=== PATIENT | male | born 1945 | race Two or more races ===

== ENCOUNTER 2024-12-16 19:04 | Emergency (ER) | payer MEDICARE, SELFPAY ==
[2024-12-16 19:11] VITALS: BP 166/92
[2024-12-16 19:44] LABS: % Basophils 0.3 % (0-2); % Eosinophils 3.4 % (0-6); % Immature Granulocytes 0.1 % (0-0.5); % Lymphocytes 36.8 % (20.5-51.1); % Monocytes 8.7 % (1.7-9.3); % Neutrophils 50.7 % (42.2-75.2); Absolute Eosinophils 0.3 10^3/uL (0-0.7); Absolute Lymphocytes 3.2 10^3/uL (1.2-3.4); Absolute Monocytes 0.8 10^3/uL (0.1-0.6); Absolute Neutrophils 4.4 10^3/uL (1.4-6.5); Hematocrit 46.9 % (39.0-52.0); Hemoglobin 16.2 g/dL (13.0-18.0); Mean Corp Hgb Conc. 34.5 g/dL (33.0-37.0); Mean Corpuscular Hgb 31.2 pg (27.0-31.0); Mean Corpuscular Volume 90.4 fL (80.0-94.0); Mean Platelet Volume 10.8 fL (7.4-10.4); Nucleated Red Blood Cells % 0 % (-); Platelet Count 173 10^3/uL (130-400); Red Blood Cell Count 5.19 10^6/uL (4.70-6.10); Red Cell Dist. Width 14.6 % (11.5-14.5); White Blood Cell Count 8.6 10^3/uL (4.8-10.8)
[2024-12-16 19:58] LABS: ALT (SGPT) 11 U/L (0-50); AST (SGOT) 19 U/L (17-59); Albumin 3.9 g/dl (3.5-5.0); Alkaline Phosphatase 61 U/L (38-126); Blood Urea Nitrogen 15 mg/dl (9-20); Calcium 9.7 mg/dl (8.4-10.2); Carbon Dioxide 27 mmol/L (22-30); Chloride 105 mmol/L (98-107); Glucose 114 mg/dl (70-99); Potassium 4.4 mmol/L (3.5-5.1); Sodium 139 mmol/L (135-145); Total Bilirubin 0.5 mg/dl (0.2-1.3); Total Protein 6.7 g/dl (6.3-8.2); eGFR > 60.00
[2024-12-16 20:11] LABS: Troponin I < 0.012 ng/ml
[2024-12-16 21:41] VITALS: BP 162/86
[2024-12-16 22:21] VITALS: BP 171/90
--- NOTE | 2024-12-16 22:50 | ED.GENMED ---
History of Present Illness
General
Chief Complaint: Chest Pain
Source: patient
Exam Limitations: none
Time Seen by Provider: 12/16/24 22:31
History of Present Illness
History of Present Illness:
79-year-old male presents complaining of chest pain onset prior to arrival. He states he was cleaning his garage when he developed left-sided then right-sided chest pain. He was not short of breath. It actually helped if he took deep breaths. No
back pain or arm pain. No recent travel or surgery. No leg swelling or calf pain. He notes mild abdominal pain as well. No nausea or vomiting. No known injury. No other at this time
Phy Exam
Physical Exam
Physical Exam:
General: Well-appearing male no acute respiratory distress
HEENT: Normocephalic atraumatic
Heart: Regular rate and rhythm no murmurs
Lungs: Clear no wheeze
Abdomen is soft tender in the epigastric region no guarding or rebound. Nondistended no costovertebral angle tenderness
Extremities: No cyanosis or edema
Skin: Warm no rash
Scores
Heart Score for Chest Pain Patients
STEMI patient?: No
History: Slightly or Non-Suspicious
ECG: Normal
Age: >/= 65 years
Risk Factors: 1 or 2 Risk Factors
Troponin: </= Normal Limit
Heart Score for Chest Pain Patients: 3
Heart Score Risk: 2.5% MACE over next 6 weeks
Course
Orders/Labs/Results
Orders:
Orders
12/16/24
ECG [Electrocardiogram (*1)] Urgent
Reason for Study: Chest Pain
12/16/24 19:06
Electrocardiogram (*1) Urgent
Reason for Study: Chest Pain
EKG- Treatment ONCE
12/16/24 19:23
CMP [Comprehensive Metabolic Panel] Urgent
Complete Blood Count/With Diff Urgent
Lipase Urgent
Troponin I Urgent
12/16/24 22:11
EKG- Treatment ONCE
12/16/24 22:46
CR Chest - 2 Views Urgent
Comment:
Reason For Exam: chest pain
12/16/24 22:48
Add On- LAB Urgent
Tests Added?: lipase
12/16/24 22:54
Troponin I Urgent
Abnormal Lab Results
12/16/24
19:23
MCH 31.2 H pg
(27.0-31.0)
RDW 14.6 H %
(11.5-14.5)
MPV 10.8 H fL
(7.4-10.4)
Absolute Monos (auto) 0.8 H 10^3/uL
(0.1-0.6)
Glucose 114 H mg/dl
(70-99)
12/16/24 19:23
12/16/24 19:23
Vital Signs
Initial and Last Documented VS:
Initial Vital Signs
Temp Pulse Resp BP Pulse Ox
98.2 F 66 16 166/92 97
12/16/24 19:11 12/16/24 19:11 12/16/24 19:11 12/16/24 19:11 12/16/24 19:11
Last Documented Vital Signs
Temp Pulse Resp BP Pulse Ox
98.2 F 57 15 171/90 95
12/16/24 19:11 12/16/24 23:10 12/16/24 23:10 12/16/24 22:21 12/16/24 23:10
MDM/Problems Addressed
Differential Diagnosis Includes:
Chest pain. differential could include ACS, pneumothorax, no risk factors for PE. Consider gastritis/GERD as well
Initial EKG shows sinus rhythm without ischemic changes. Troponin is undetectable. Labs reviewed without any significant finding. Chest x-ray pending repeat troponin pending and if negative suspect patient could be discharged. Consider gastritis
or GERD if this is the case.
*Critical Care Note
Total Time (30-74mins, 75-104mins- exclusive of procedures): Not Applicable
Update Note
Update Note:
Repeat troponin normal and undetectable. The x-ray is clear. Atypical chest discomfort. Consider reflux or GERD but will follow-up with cardiology for chest pain hotline.
ED Attending Note
-
Portions of this chart may have been created with voice recognition software.� Occasional wrong word or��sound alike� substitutions may have occurred due to the inherent limitations of voice recognition software.
Discharge Plan
Departure
Patient Disposition: Home (Routine Discharge)
Date of Disposition: 12/16/24
Time of Disposition: 23:43
Patient with high blood pressure during this ER visit?: No
Discharge Problem:
Chest pain
Instructions: Acid Reflux and GERD in Adults (DC), Chest Pain CBC Follow Up
Referrals:
Pamela Heller MD [Family Provider] -
Activity Restrictions/Additional Instructions:
Please return here for worsening symptoms. Follow-up with cardiology. Consider antacids like Prilosec OTC for reflux.
Interventions
Interventions:
*Risk Screen - Suicide Last Done: 12/16/24 19:11
*General Assessment Last Done: 12/16/24 19:11
*Neglect/Abuse Screening Last Done: 12/16/24 19:11
*ED- Fall Risk Assessment Last Done: 12/16/24 19:11
*ED COVID-19 Vaccine History Last Done: 12/16/24 19:11
ED- Cardiac Assessment Last Done: 12/16/24 22:30
Discharge Date and Time
Print Language: ESTONIAN
[2024-12-16 23:10] VITALS: BP 176/94
[2024-12-16 23:19] LABS: Lipase 135 U/L (23-300)
[2024-12-16 23:26] LABS: Troponin I < 0.012 ng/ml
[2024-12-16 23:47] VITALS: BP 167/83
== END 2024-12-16 23:51 | disposition home or self-care (01) ==
LOC: EMR 19:04
PROVIDERS: Emergency Medicine; Student in an Organized Health Care Education/Training Program; EMERGENCY PHYSICIAN Emergency Medicine; FAMILY PHYSICIAN Family Medicine
DX: R07.89 Other chest pain (principal); R10.9 Unspecified abdominal pain
CPT/HCPCS: 99285; 71046; 80053; 83690; 84484; 85025; 93005

== ENCOUNTER → 2024-12-25 08:17 | Outpatient (REF) | payer MEDICARE, SELFPAY | LOC: RCS 08:17 | PROVIDERS: ATTENDING PHYSICIAN Internal Medicine Cardiovascular Disease; FAMILY PHYSICIAN Family Medicine; REFERRING PHYSICIAN Internal Medicine | DX: E78.01 Familial hypercholesterolemia (principal) | CPT/HCPCS: 93017; 93350 ==

== ENCOUNTER 2024-12-25 11:02 | Inpatient (IN) | payer MEDICARE, SELFPAY ==
[2024-12-25] VITALS (16 sets, daily range): BP systolic 146–200; BP diastolic 75–112; BMI 28.2
--- NOTE | 2024-12-25 10:03 | HPS.HSE ---
Addendum entered and electronically signed by Magdalena Stephens MD 12/25/24 10:13:
Patient now with 2/10 cp in ED, ecg no STEMI, starting nitro gtt for ACS. Starting heparin gtt.
Original Note:
Family Physician
-
Family Physician: Pamela Heller
Chief Complaint
-
abnormal stress
History of Present Illness
79-year-old gent with past medical history of familial hypercholesterolemia, hypertriglyceridemia, statin and Zetia intolerance, carotid atherosclerosis, impaired fasting glucose, and hypertension who presented to cardiac services for stress test
today. He had recently been seen in the emergency room for chest pain that began while working in his garage and lifting heavy boxes. He was evaluated with 2 negative troponins and sent home. On stress testing today. He had a high risk stress
echo test result:
Exercise-induced wall motion changes in the mid to apical mid to apical anteroseptal wall, mid to apical inferoseptal wall, and apex.
Ischemic EKG changes and exercise limiting chest pain at 4 minutes.
Normal ejection fraction at rest, reduced ejection fraction with exercise to 45 to 50%.
Poor exercise tolerance.
Compared to the prior on 01/24/2023, the prior test was normal.
Results were discussed with the patient at the time of completion. He was directed to the emergency room for admission to proceed to catheterization today given high risk test result.
Currently he is chest pain-free and agreeable to admission for urgent cardiac catheterization given his high risk stress result.
Medical History
Past Medical History
Past Medical History: Reports Cancer (Bladder), HTN, Hypercholesterolemia (Familial mixed hyperlipidemia) and Other (IFG)
Past Surgical History: Reports Other (Procedure for his bladder cancer)
Social History
Tobacco: Non-smoker
Alcohol: Occasional
Personal:
Family History
Family History: Not pertinent
Allergies / Home Medications
Allergies reflects when Allergies were last updated in [facility].
Home Medications with original date entered in [facility]
Allergy/Medication List:
aspirin 81 mg p.o. daily
Finasteride 5 mg p.o. daily
Losartan 25 mg p.o. daily
Omeprazole 40 mg p.o. daily
Tamsulosin 0.4 mg p.o. daily.
Review of Systems
-
A 12 point ROS was completed and negative except as noted: Yes
Constitutional: Reports No Symptoms
EENT: Reports No Symptoms
Physical Exam
Vital Signs
Vital Signs
Temp Pulse Resp BP Pulse Ox
98.7 F 84 16 178/107 98
12/25/24 09:46 12/25/24 09:46 12/25/24 09:46 12/25/24 09:46 12/25/24 09:46
Physical Exam
General: Well Developed, Well Nourished and No Apparent Distress
HEENT: NormoCephalic, Anicteric and Moist mucous membranes
Respiratory: Clear; No Wheezes, Rales or Rhonchi
Cardiac: S1/S2, Regular Rhythm and Irregular Rhythm; No Murmur, Rub or Gallop
Skin: Warm and Dry
Neuro: AO x 3
Laboratory Results
-
pending
Data Reviewed
-
Medical Tests (Nuc Med, Echo, EKG etc): Image Personally Visualized and interpreted (stress result above)
Impression/Plan
-
IMPRESSION:
79-year-old gentleman past medical history of familial hypercholesterolemia, hypertension, GERD who presented with a high risk stress test results and evaluation for chest pain
Chest pain: High risk stress test results. See full details above.
Will arrange for urgent catheterization today.
Labs pending.
OMT as indicated post procedure.
Hypertension: Typically on losartan, may be able to add beta-madeline will evaluate.
Familial hypercholesterolemia: Will check lipid panel. Would consider PCSK9 inhibitor or inclisiran. Can discuss postprocedure.
BPH: Continue finasteride and tamsulosin.
Overall, this is a high risk situation necessitating urgent catheterization.
--- NOTE | 2024-12-25 10:10 | ED.GENMED ---
History of Present Illness
General
Chief Complaint: Cardiac Symptoms
Source: patient
Time Seen by Provider: 12/25/24 09:52
History of Present Illness
History of Present Illness:
79-year-old male sent to the emergency room from outpatient stress test where he developed 10 out of 10 chest pain while performing an exercise stress test. Patient was evidently about 4 minutes into the test when he developed chest pressure. He
states the discomfort improved significantly when he stopped exercising. He currently rates it a 1-2 out of 10, the patient looks quite comfortable. Patient states that he has been experiencing some chest tightness with exertion like gardening.
He was seen here in the emergency room on December 16 after having an episode of chest pressure. He had 2 negative troponins and was discharged on to the chest pain hotline. Patient followed up with cardiology and a stress test was scheduled. Patient
is known to Dr. Gibson. As noted above during the stress test he had chest pain prompting his referral to the emergency room. Plan is for the patient to have a cardiac catheterization today.
Phy Exam
Physical Exam
Physical Exam:
General: Awake, Alert, Oriented X3. No acute distress.
Vitals: Hypertensive
Head: Atraumatic
Eyes: Pupils equal, EOMI
Throat: Airway intact, no exudates
Neck: Trachea midline
Lungs: Clear and equal b/l
Heart: Regular rate, no murmurs
Abd: Soft, Nontender, No pulsatile mass
Neuro: Nonfocal
Skin: Warm, dry, no rash
Extremities: pulses equal b/l, no edema
Course
Orders/Labs/Results
Orders:
Orders
12/25/24 09:40
EKG [Electrocardiogram (*1)] Urgent
Reason for Study: Abnormal EKG
EKG- Treatment ONCE
12/25/24 10:00
Admit/Transfer Patient As Directed
Co-Sign Provider:
Level of Care: Inpatient admission
Assign to:: IVU
Physician / Group: Dr. Stephens
Diagnosis: high risk stress test, chest discomfort
Reason for Hospitalization: high risk stress test, chest discomfort
Expected length of stay greater than two midnights?: Yes
ELOS- Estimated Length of Stay in days: 3
I certify the patient meets the requirements for IP care: Yes
NPO
Allow oral meds: Yes
Allow clear liquids: No
12/25/24 10:02
Aspirin 325 mg PO NOW STA
12/25/24 10:05
Aspirin Chewable [Low Strength Aspirin] 324 mg PO NOW STA
Nitroglycerin Sublingual [Nitrostat (Sublingual)] 0.4 mg SL [id number] PRN
12/25/24 10:06
Cardiac Monitoring- Treatment ONCE
CR Chest Portable - 1 View Urgent
Comment:
Reason For Exam: chest pain
Reason Study Needs to be Portable: Unable to Transport
12/25/24 10:08
Basic Metabolic Panel Urgent
Complete Blood Count/With Diff Urgent
Troponin I Urgent
12/25/24 10:11
Nitroglycerin 100 mg/250 ml [Nitroglycerin Premix] 100 mg in 250 ml IV NOW
Initial dose in mcg/min, then titrate:: 5
Titrate to keep:: SBP < 160 mmHg
Titrate by mcg/min:: 5 mcg/min, may increase by 10 mcg/min if dose > 20 mcg/min
Frequency of titrations (minutes):: every 3-5 minutes
Maximum dose in mcg/min:: 200
Begin to taper infusion when:: Remained at goal for 2hrs
Taper by mcg/min:: 5 mcg/min
Frequency of taper (minutes) if patient maintains goal:: 30
Taper to off?: Yes
If infusion off & no longer maintaining goal:: Contact Provider
12/25/24 10:18
Heparin 5,000 units .ROUTE .STK-MED ONE
Heparin 27569 Units/250 ml 25,000 units in 250 ml .ROUTE .STK-MED
12/25/24 10:21
Heparin 4,000 units IV NOW STA
12/25/24 10:30
Heparin 71173 Units/250 ml 25,000 units in 250 ml IV PER PROTOCOL
Weight to be used for heparin protocol in kilograms (kg):: 94.2
Protocol:: Cardiac Tx/Acute Coronary
PTT Goal Range to be used:: PTT 73 to 111 seconds
Order type:: Initial
INITIAL Infusion Dose (UNITS/KG/hr) & then follow protocol:: 12 units/kg/hr
Infusion Dose in UNITS/hr & then follow protocol (UNITS/hr):: 1,000
INFUSION RATE in mL/hr & then follow protocol (mL/hr):: 10
PTT less than or equal to 64 seconds:: Increase rate by 200 units/hr (+ 2 mL/hr)
PTT 64.1 to 72.9 seconds:: Increase rate by 100 units/hr (+ 1 mL/hr)
PTT 73 to 111 seconds:: Target Range. No change in rate.
PTT 111.1 to 130.9 seconds:: Decrease rate by 100 units/hr (- 1 mL/hr)
PTT 131 to 199.9 seconds:: HOLD for 1 hr. Then decrease rate by 200 units/hr (- 2 mL/hr)
PTT greater than or equal to 200 seconds:: HOLD for 2 hrs & Notify Provider. Then decrease by 200 units/hr (-
2 mL/hr)
Lab follow-up:: Each change, PTT q6h until 2 consecutive are therapeutic. Then PTT
daily.
12/25/24 13:12
Activity As Directed
Activity Level: As Tolerated
IV [INT (Intravenous Needle Therapy)] As Directed
Vital Signs As Directed
Frequency: Per unit guidelines
DX Deep Vein Thrombosis Video Routine
12/26/24 06:00
BMP [Basic Metabolic Panel] IN AM
Hgba1c [Glycohemoglobin (HgbA1c)] IN AM
Lipid Profile [Cardiovascular Evaluation] IN AM
12/26/24 08:00
Aspirin Chewable [Low Strength Aspirin] 81 mg PO DAILY
Losartan [Cozaar] 25 mg PO DAILY
Pantoprazole [Protonix] 40 mg PO DAILY
Tamsulosin [Flomax] 0.4 mg PO DAILY
Abnormal Lab Results
12/25/24
10:08
MCH 31.3 H pg
(27.0-31.0)
RDW 14.6 H %
(11.5-14.5)
MPV 10.5 H fL
(7.4-10.4)
Absolute Monos (auto) 0.7 H 10^3/uL
(0.1-0.6)
Chloride 108 H mmol/L
(98-107)
BUN 21 H mg/dl
(9-20)
Glucose 104 H mg/dl
(70-99)
12/25/24 10:08
12/25/24 10:08
Vital Signs
Initial and Last Documented VS:
Initial Vital Signs
Temp Pulse Resp BP Pulse Ox
98.7 F 84 16 178/107 98
12/25/24 09:46 12/25/24 09:46 12/25/24 09:46 12/25/24 09:46 12/25/24 09:46
Last Documented Vital Signs
Temp Pulse Resp BP Pulse Ox
98.4 F 70 18 147/75 97
12/25/24 15:51 12/25/24 15:30 12/25/24 15:51 12/25/24 15:13 12/25/24 15:51
MDM/Problems Addressed
Differential Diagnosis Includes:
Unstable angina, NSTEMI, vasospasm
MDM/Problems Addressed:
Patient presents with chest pain during stress test which is taken a long time to improve. EKG here shows no acute ischemic changes. Patient treated with sublingual nitro and a nitro drip was started. Patient also started on heparin and given 4
baby aspirin. Communicated with Dr. Stephens who had alerted us that the patient will be coming to the hospital. Plan is for the patient to go to the [facility] today. Upon reevaluation the patient is pain-free. He had been seen by Dr. Collins
and just waiting on [facility] availability.
*Radiology
Radiology exam reviewed: preliminary read by ED provider (No acute disease)
*Pulse Oximetry
Patient hypoxic: no
*EKG
Interpreted by ED Provider?: Yes
Heart Rate: 73
Rate: normal
Rhythm: sinus
[place]: left axis deviation
Interval: first degree heart block
Ischemia: non-specific ST changes
*Patient Access Registrar Interpretation
Rate: normal
Interpretation: normal
Heart Rate: 73
Rhythm: sinus
*Critical Care Note
Total Time (30-74mins, 75-104mins- exclusive of procedures): 32 min
comment:
Critical care statement: A total of 32 minutes of critical care time was provided for this patient. This includes management of unstable vital signs, evaluation of the patient at bedside, reviewing the patient's pertinent medical records, discussion
with consultants, review of old EKGs and review of pertinent medical records. This time with separate from time utilized to perform the aforementioned documented procedures
ED Attending Note
-
Portions of this chart may have been created with voice recognition software.� Occasional wrong word or��sound alike� substitutions may have occurred due to the inherent limitations of voice recognition software.
Discharge Plan
Departure
Patient Disposition: Admit
Date of Disposition: 12/25/24
Time of Disposition: 10:22
Admit to: [facility]
Presentation/result/management discussed w/ accepting MD/DO: Dr. Stephens
Condition: Serious
Discharge Problem:
Hx of unstable angina
Interventions
Interventions:
*Risk Screen - Suicide Last Done: 12/25/24 14:38
*General Assessment Last Done: 12/25/24 09:46
*Neglect/Abuse Screening Last Done: 12/25/24 09:46
*ED- Fall Risk Assessment Last Done: 12/25/24 09:46
*ED COVID-19 Vaccine History Last Done: 12/25/24 14:38
*Nursing Disposition Last Done: 12/25/24 10:45
ED- Pulmonary Assessment Last Done: 12/25/24 10:06
ED- Cardiac Assessment Last Done: 12/25/24 10:06
Discharge Date and Time
Discharge Date/Time: 12/25/24 10:45
[2024-12-25] MEDS: LOW STRENGTH ASPIRIN 324 MG PO (10:11)
[2024-12-25] MEDS: NITROSTAT (SUBLINGUAL) 0.4 MG SL (10:14)
[2024-12-25 10:17] LABS: % Basophils 0.5 % (0-2); % Eosinophils 3.5 % (0-6); % Immature Granulocytes 0.3 % (0-0.5); % Lymphocytes 36.5 % (20.5-51.1); % Neutrophils 51.2 % (42.2-75.2); Absolute Eosinophils 0.3 10^3/uL (0-0.7); Absolute Lymphocytes 3.2 10^3/uL (1.2-3.4); Absolute Monocytes 0.7 10^3/uL (0.1-0.6); Absolute Neutrophils 4.5 10^3/uL (1.4-6.5); Hematocrit 47.4 % (39.0-52.0); Hemoglobin 16.3 g/dL (13.0-18.0); Mean Corp Hgb Conc. 34.4 g/dL (33.0-37.0); Mean Corpuscular Hgb 31.3 pg (27.0-31.0); Mean Corpuscular Volume 91.2 fL (80.0-94.0); Mean Platelet Volume 10.5 fL (7.4-10.4); Nucleated Red Blood Cells % 0 % (-); Platelet Count 171 10^3/uL (130-400); Red Cell Dist. Width 14.6 % (11.5-14.5); White Blood Cell Count 8.7 10^3/uL (4.8-10.8)
[2024-12-25] MEDS: HEPARIN 4000 UNITS IV (10:25)
[2024-12-25 10:27] LABS: Blood Urea Nitrogen 21 mg/dl (9-20); Calcium 9.6 mg/dl (8.4-10.2); Carbon Dioxide 26 mmol/L (22-30); Chloride 108 mmol/L (98-107); Estimated Creatinine Clearance 74 ml/min; Glucose 104 mg/dl (70-99); Potassium 4.1 mmol/L (3.5-5.1); Sodium 142 mmol/L (135-145); eGFR > 60.00
[2024-12-25] MEDS: HEPARIN 25000 UNITS/250 ML IV (10:31)
--- NOTE | 2024-12-25 10:39 | EDRN ---
order to HOLD
[2024-12-25 10:40] LABS: Troponin I < 0.012 ng/ml
[2024-12-25 12:08] LABS: ACT-LR - POC > 397 Seconds (116-155)
[2024-12-25 12:08] LABS: ACT-LR - POC > 397 Seconds (116-155)
[2024-12-25] MEDS: NSS 1000 IV (12:12)
--- NOTE | 2024-12-25 14:00 | ITS.CL.ANGIO ---
[facility] - Angioplasty
Angioplasty
Procedure Report:
CARDIAC CATHETERIZATION REPORT
Date of Procedure: 12/25/2024
Referring: Magaly Stephens M.D.
INDICATION: High risk stress test with continuous chest pain.
PROCEDURE:
1. Left heart catheterization.
2. Coronary angiography.
3. Intravascular ultrasound.
4. Successful PCI of the proximal LAD.
5. Successful PCI of the ostial LAD using a backstop technique.
A total of 59 minutes of procedural/moderate sedation was utilized. An independent medical language specialist was present to assist with and help manage the patient's level of consciousness and physiologic status.
ACCESS:
1. 6 [place] right radial artery using a modified Seldinger technique.
CATHETERS:
1. 5 [place] JR4.
2. 5 [place] JL 3.5.
3. 6 [place] EBU 4.0 guiding catheter.
HEMODYNAMIC DATA
Weight (kg): 93.9
AO (s/d/x, mmHg): 149/86/113
LV (s/x mmHg): 150/6
LEFT VENTRICULOGRAPHY: Not performed.
CORONARY ANGIOGRAPHY
Dominance: Right.
Left Main: Large size, trifurcating vessel. There is no coronary artery disease.
LAD: Normal size vessel with no significant diagonals. There is a hazy, 90% lesion in the ostium of the vessel. There is an 80% lesion in the proximal vessel.
Ramus: Large size vessel that bifurcates into a anterior and lateral branch with the anterior branch acting as a parallel LAD vessel and the lateral branch bifurcating into an upper and lower branches supplying the majority of the lateral wall.
There is no coronary artery disease.
Circumflex: Medium size, nondominant vessel giving rise to 1 significant obtuse marginal. There is no coronary artery disease.
RCA: Large size, dominant vessel with an anterior origin. The RPDA arises proximally on the vessel, essentially at the crux. There is a significant posterolateral arcade with a 30% lesion in its distal margin.
INTERVENTION(S)
1. Successful IVUS of the LAD and left main coronary artery.
2. Successful IVUS guided PCI of the 80% proximal LAD lesion ([employer]onic [place] 3.5 x 15 MARILYNN, postdilated with a 3.5 NC balloon) with reduction in stenosis to 0%, maintaining BRANDON-3 flow.
3. Successful IVUS guided PCI of the 90% ostial LAD lesion using a backstop technique (Medtronic [place] 3.5 x 12 MARILYNN, postdilated with a 3.5 NC balloon) with reduction in stenosis to 0%, maintaining BRANDON-3 flow.
4. Successful IVUS of the ramus intermedius and left main coronary artery post PCI.
Narrative:
The decision was made to proceed with percutaneous coronary intervention. The diagnostic catheter was removed over a wire and a 6Fr EBU 4.0 guiding catheter was advanced to the aortic root and seated in the left main coronary artery. Additional
heparin was given and a Power Turn Flex wire was advanced into the distal LAD. The 90% ostial LAD lesion was predilated with a 2.0 x 12 semi-compliant balloon to 12 vito as the presence of the balloon was occlusive. After restoring BRANDON-3 flow, the
balloon was advanced to the proximal LAD and the 80% lesion was predilated to 12 vito.
The decision was made to perform intracoronary imaging. An IVUS catheter was advanced through the guiding catheter and into the ostium of the artery. Ring down was performed once the imaging crystal was no longer inside of the guiding catheter. The
IVUS catheter was advanced into the mid LAD. Intravascular ultrasound was performed in a retrograde fashion using a slow pullback. Intracoronary imaging demonstrated severe, fibrous atherosclerotic disease in the proximal LAD and in the ostium of
the LAD. The left main coronary artery appeared free from disease. Vessel measurements were obtained.
The IVUS catheter was removed and a Medtronic [place] 3.5 x 15 drug-eluting stent was advanced into the proximal LAD. The stent was deployed at 12 atmospheres. The stent balloon was pulled back into the ostium of the LAD and the 90% ostial
lesion was predilated with a 3.5 x 15 stent balloon as it entered the left main coronary artery. The stent balloon was removed. At this time, we opted to use a backstop technique to ensure stent delivery at an appropriate site. A BMW wire was
advanced through the guide and into the large ramus intermedius. A Medtronic [place] 3.5 x 12 drug-eluting stent was advanced into the ostial LAD. The 3.5 x 18 stent balloon was readvanced over the BMW wire and seated in the distal left
main, near the origin of the ramus.
The 3.5 x 18 stent balloon was advanced in the left main coronary artery and left in place. With this balloon expanded, 3.5 x 12 MARILYNN was pulled backwards until it abutted the balloon which stopped it from advancing into the left main. Satisfied
with this position, the 3.5 x 12 MARILYNN was deployed at 12 vito. When the stent balloon was fully expanded, the 3.5 x 18 stent balloon was deflated and withdrawn. The 3.5 x 12 MARILYNN balloon was deflated and withdrawn. We observed that the ostial and
proximal LAD stents were overlapping.
A 3.5 x 12 noncompliant balloon was advanced into the stented segment and the entire stented segment was postdilated to 15 atmospheres. The noncompliant balloon was withdrawn and IVUS was repeated in the LAD. This demonstrated excellent stent
expansion and apposition throughout the entire stented segment. It also confirmed that the ostial lesion was successfully treated. The IVUS catheter was withdrawn from the LAD and readvanced over the BMW wire into the ramus intermedius. IVUS was
performed from the ramus back into the left main coronary artery. This demonstrated that the ramus and the left main coronary artery were free from injury and confirmed that the LAD stent did not protrude into the left main coronary artery in any
significant fashion.
The IVUS catheter was withdrawn. Angiography was performed in orthogonal views, confirming good stent expansion and an excellent angiographic result. The coronary wire was withdrawn and the guide was disengaged from the artery. The catheter was
removed over a standard J-wire.
Closure Device: Vascular band.
Radiation (mGy): 686.98
DAP (cm2.Gy): 42.8833
Fluoroscopy time (minutes): 12.8
CONCLUSIONS
1. Right dominant circulation with a 30% lesion in the distal RPL, and 80% lesion in the proximal LAD status post successful IVUS guided PCI (Medtronic [place] 3.5 x 15 MARILYNN, postdilated with a 3.5 NC balloon) and a 90% ostial LAD lesion
status post successful IVUS guided PCI using a backstop technique (Medtronic [place] 3.5 x 12 MARILYNN, postdilated with a 3.5 NC balloon) with reduction in both stenoses to 0%, maintaining BRANDON-3 flow.
2. Normal filling pressures (LVEDP = 6 mmHg at 93.9 kg).
RECOMMENDATIONS:
1. Expectant management after cardiac catheterization via right radial approach.
2. Limited weight bearing on the right wrist for one week.
3. Dual antiplatelet therapy with aspirin and ticagrelor for at least 12 months, followed by aspirin indefinitely.
4. Aggressive secondary prevention. Patient reports intolerance of statins. PCSK9 inhibitors are indicated though may be prohibitively expensive. Case management consult.
5. Echocardiogram ordered and pending.
6. OMT/GDMT as hemodynamics tolerate.
7. Referral to cardiac rehab.
Copy to: Magaly Stephens M.D., Pamela Heller M.D.
Eitan Green DO, FACC, FACP
--- NOTE | 2024-12-25 16:40 | CM ---
Chart reviewed. Patient is independent of ADLS, lives with his in a 3 [address], 5-6 DIANDRA,, 0 DME. Plan is for the patient to return home. CM to follow
--- NOTE | 2024-12-25 16:41 | CM ---
Pricing on Brilinta through the patient's [facility], ID# [id number], is $224. 87. Patient is responsible for paying 24% of cost. Patient is agreeable to cost. I asked Denae Gramajo to send the script over to [facility]. It is not in stock, but if
ordered today it will be in tomorrow.
[2024-12-25 18:57] LABS: Troponin I 0.149 ng/ml
--- NOTE | 2024-12-25 19:31 | PTCARENOTE ---
Pt received from recovery area post stent placement. Right radial band removed without problem, no sign of bleeding or hematoma.Pt denies any discomfort, up walking in room without problem. Pt passing urine without difficulty. Telemetry shows sinus
rhythm with borderline first degree AV block.
[2024-12-25] MEDS: BRILINTA 90 MG PO (19:37)
[2024-12-25] MEDS: FLOMAX 0.4 MG PO (22:27)
[2024-12-25] MEDS: COZAAR 25 MG PO (22:27)
--- NOTE | 2024-12-25 23:02 | PTCARENOTE ---
Received patient at change of shift. SR on the monitor, HR in the 60s. R radial dressing CDI, no evidence of hematoma. No complaints from pt at this time, call luna within reach.
[2024-12-26] VITALS (7 sets, daily range): BP systolic 131–151; BP diastolic 73–90
[2024-12-26 03:09] LABS: Blood Urea Nitrogen 17 mg/dl (9-20); Calcium 9.1 mg/dl (8.4-10.2); Carbon Dioxide 23 mmol/L (22-30); Chloride 114 mmol/L (98-107); Estimated Creatinine Clearance 84 ml/min; Glucose 101 mg/dl (70-99); HDL Cholesterol 32 mg/dl; LDL Cholesterol, Calculated 166 mg/dl; Potassium 3.8 mmol/L (3.5-5.1); Sodium 141 mmol/L (135-145); Total Cholesterol 234 mg/dl (50-199); Triglyceride 182 mg/dl (10-149); Troponin I 0.457 ng/ml; Very Low Density Lipoprotein 36 mg/dl (0-30); eGFR > 60.00
--- NOTE | 2024-12-26 07:56 | W.PN.CD ---
Today's Communication / Plan
-
Trend troponin to peak.
Echocardiogram.
Case management consult for PCSK9i cost.
Add carvedilol (both for BP and for CAD).
Discharge planning (tomorrow).
Impression / Plan
-
Impression/Plan: 79 y/o male with HLD and HTN admitted from stress lab with NSTEMI after developing unremitting chest pain during a stress echocardiogram (which was markedly positive in the LAD territory).
#CAD/NSTEMI
-Acute.
-Troponin up to 0.457. Trend to peak.
-S/P IVUS guided PCI of 80% proximal LAD and 90% ostial LAD lesions (overlapping Medtronic [place] 3.5 x 18 MARILYNN, 3.5 x 12 MARILYNN, post dilated with a 3.5 NCB) with reduction in stenosis to 0%, maintaining BRANDON III flow.
-DAPT with aspirin and ticagrelor for at least 12 months, followed by aspirin indefinitely.
-Echocardiogram pending.
-Aggressive secondary prevention (previously intolerant of statins, PCSK9i are costly).
-Referral to cardiac rehab.
-Start carvedilol 6.25 mg BID.
#HLD/statin intolerance
-Chronic, uncontrolled.
-Total cholesterol = 234, LDL = 166, HDL = 32, Triglycerides = 182.
-Case management consult for evolocumab/alirocumab for discharge.
#HTN
-Chronic, mild/moderate elevation overnight.
-Losartan dosed last evening.
-Start carvedilol 6.25 mg BID.
#PPx
-SCD's for DVT/VTE.
-Ambulate.
-Home PPI.
#Dispo
-IVU status.
-Full code.
-Discharge planning.
Subjective/Interval History:
PCI of ostial/proximal LAD lesions yesterday.
Chest pain resolved.
Feels well.
Mild/moderately hypertensive overnight. Losartan given around 22:00.
DATA:
Cardiac Catheterization/PCI, 12/25/2024:
CONCLUSIONS
1. Right dominant circulation with a 30% lesion in the distal RPL, and 80% lesion in the proximal LAD status post successful IVUS guided PCI (Medtronic [place] 3.5 x 15 MARILYNN, postdilated with a 3.5 NC balloon) and a 90% ostial LAD lesion
status post successful IVUS guided PCI using a backstop technique (Medtronic [place] 3.5 x 12 MARILYNN, postdilated with a 3.5 NC balloon) with reduction in both stenoses to 0%, maintaining BRANDON-3 flow.
2. Normal filling pressures (LVEDP = 6 mmHg at 93.9 kg).
Physical Exam
Vital Signs/Labs
Vital Signs
Temp Pulse Resp BP Pulse Ox
36.6 C 63 20 141/90 94
12/26/24 07:07 12/26/24 05:00 12/26/24 07:07 12/26/24 02:18 12/26/24 07:07
12/24/24 12/25/24 12/26/24
11:59 11:59 11:59
Actual Weight 94.2 kg
12/25/24 10:08
12/26/24 02:25
Triglycerides 182 mg/dl (10-149) H 12/26/24 02:25
LDL Cholesterol, Calc 166 mg/dl 12/26/24 02:25
VLDL Cholesterol, Calc 36 mg/dl (0-30) H 12/26/24 02:25
HDL Cholesterol 32 mg/dl 12/26/24 02:25
LAB Results
12/25/24 12/25/24 12/26/24
10:08 18:05 02:25
Troponin I < 0.012 0.149 H* D 0.457 H*
Physical Exam
Constitutional: No acute distress and Comfortable
EENT: Anicteric and Moist mucous membranes
Cardiovascular: Rhythm & rate is regular, Pedal edema is absent, JVD pressure is normal, S1S2 is normal and Murmur/rub/gallop absent
Respiratory: Respiratory effort normal, Lungs clear to auscul., Wheeze Absent, Crackles Absent and Rhonchi Absent
GI: Soft, Distention absent, Flat, Non tender and Normal bowel sounds
Neuro/Psych: AO x 3
Other: Cath Site (Right radial access site is C/D/I.)
Data Reviewed
-
Date of Service: December 26, 2024
Medical Decision Making: Reviewed Test Results, Independent Historian Assessment and Test Interpretation
EKG: Tracing Personally Visualized and interpreted and Report Reviewed by me
Echo: Ordered by me
X-Ray/CT/US/MRI/NUC/PET: Image Personally Visualized and interpreted and Report Reviewed by me
Medical Tests (PFT, Pathology etc): Image Personally Visualized and interpreted, Report Reviewed by me, Discussed with Patient and Discussed with Family
Labs: Labs Reviewed by me
Old Records: Reviewed
[2024-12-26] MEDS: LOW STRENGTH ASPIRIN 81 MG PO (08:23)
[2024-12-26] MEDS: BRILINTA 90 MG PO ×2 (08:23→19:53)
[2024-12-26] MEDS: PROTONIX 40 MG PO (08:23)
[2024-12-26 08:47] LABS: Glycohemoglobin (HgbA1c) 5.8 % (4.0-5.6)
[2024-12-26 10:53] LABS: Troponin I 0.244 ng/ml
--- NOTE | 2024-12-26 11:26 | CM ---
Pricing on Repatha through the patient's [employer] [facility] is $0 copay. The patient has met his deductible. Notified patient and Lou Campos.
Patient is independent of ADLS, lives with his in a [address], 5-6 DIANDRA, 0 DME. Plan is for the patient to return home. CM to follow.
[2024-12-26] MEDS: COREG 6.25 MG PO ×2 (14:28→19:53)
--- NOTE | 2024-12-26 18:33 | PTCARENOTE ---
pt continues to be sr on the monitor, hr in the 60s, vss. right radial dressing cdi. pt offers no complaints at this. pt educated on plan of care and pt verbalized understanding. call luna within reach.
[2024-12-26] MEDS: FLOMAX 0.4 MG PO (22:42)
[2024-12-26] MEDS: COZAAR 25 MG PO (22:42)
--- NOTE | 2024-12-26 23:10 | PTCARENOTE ---
received patient at the change of shift. AAOx3. independent in the room. denies any cp/sob. SB/SR on tele 50s-60s. bp stable. R radial site, AYDEE/CDI. reviewed plan of care with patient and verbalized understanding. educated to inform RN with any
changes overnight. call luna within reach. makes needs known. eager to go home tomorrow.
[2024-12-27 05:01] VITALS: BP 155/90
[2024-12-27] MEDS: PROTONIX 40 MG PO (08:50)
[2024-12-27] MEDS: BRILINTA 90 MG PO (08:50)
[2024-12-27] MEDS: LOW STRENGTH ASPIRIN 81 MG PO (08:51)
[2024-12-27 08:52] VITALS: BP 117/63
[2024-12-27] MEDS: COREG 6.25 MG PO (08:52)
--- NOTE | 2024-12-27 09:17 | W.PN.CD ---
Addendum entered and electronically signed by Anders Bustos MD 12/27/24 12:21:
Patient is seen and evaluated personally. I agree with the documentation, plan of care, and physical examination as discussed personally with nurse practitioner and documented below.
Briefly, 79-year-old gentleman with NSTEMI status post PCI to proximal LAD and ostial LAD. Plan for DAPT with aspirin/Plavix for 12 months. Patient is intolerant to statins in the past. He definitely needs aggressive therapy including addition of
PCSK9 inhibitor like Repatha. LDL goal less than 55.
Original Note:
Today's Communication / Plan
-
d/c home
Impression / Plan
-
Impression/Plan: 79 y/o male with HLD and HTN admitted from stress lab with NSTEMI after developing unremitting chest pain during a stress echocardiogram (which was markedly positive in the LAD territory).
#CAD/NSTEMI
-Acute.
-Troponin peak 0.457
-S/P IVUS guided PCI of 80% proximal LAD and 90% ostial LAD lesions (overlapping Medtronic [place] 3.5 x 18 MARILYNN, 3.5 x 12 MARILYNN, post dilated with a 3.5 NCB) with reduction in stenosis to 0%, maintaining BRANDON III flow.
-DAPT with aspirin and ticagrelor for at least 12 months, followed by aspirin indefinitely.
-Echocardiogram this admit 12/26/24 EF 60-65, trace AR
-Aggressive secondary prevention (previously intolerant of statins,) Case management looked into cost of repatha and it is affordable.
-Referral to cardiac rehab.
-carvedilol 6.25 mg BID. started 12/26/24
#HLD/statin intolerance
-Chronic, uncontrolled.
-Total cholesterol = 234, LDL = 166, HDL = 32, Triglycerides = 182.
- d/c on repatha
#HTN
-Chronic, mild/moderate elevation overnight.
-Losartan dosed last evening.
- carvedilol 6.25 mg BID started 12/26/24
#PPx
-SCD's for DVT/VTE.
-Ambulate.
-Home PPI.
#Dispo
- d/c home, OP follow reviewed
Subjective/Interval History:
PCI of ostial/proximal LAD lesions
Pt denies CP, SOB, palps,
Denies issues with R radial site.
DATA:
Cardiac Catheterization/PCI, 12/25/2024:
CONCLUSIONS
1. Right dominant circulation with a 30% lesion in the distal RPL, and 80% lesion in the proximal LAD status post successful IVUS guided PCI (Medtronic [place] 3.5 x 15 MARILYNN, postdilated with a 3.5 NC balloon) and a 90% ostial LAD lesion
status post successful IVUS guided PCI using a backstop technique (Medtronic [place] 3.5 x 12 MARILYNN, postdilated with a 3.5 NC balloon) with reduction in both stenoses to 0%, maintaining BRANDON-3 flow.
2. Normal filling pressures (LVEDP = 6 mmHg at 93.9 kg).
Physical Exam
Vital Signs/Labs
Vital Signs
Temp Pulse Resp BP Pulse Ox
98.0 F 70 20 117/63 95
12/27/24 05:03 12/27/24 08:52 12/27/24 05:03 12/27/24 08:52 12/27/24 05:03
12/26/24 12/27/24 12/28/24
06:59 06:59 06:59
Actual Weight 94.2 kg
12/25/24 10:08
12/26/24 02:25
Triglycerides 182 mg/dl (10-149) H 12/26/24 02:25
LDL Cholesterol, Calc 166 mg/dl 12/26/24 02:25
VLDL Cholesterol, Calc 36 mg/dl (0-30) H 12/26/24 02:25
HDL Cholesterol 32 mg/dl 12/26/24 02:25
LAB Results
12/25/24 12/25/24 12/26/24
10:08 18:05 02:25
Troponin I < 0.012 0.149 H* D 0.457 H*
12/26/24
10:01
Troponin I 0.244 H* D
Physical Exam
Constitutional: No acute distress
Cardiovascular: Rhythm & rate is regular and Pedal edema is absent
Respiratory: Respiratory effort normal and Lungs clear to auscul.
GI: Soft, Non tender and Normal bowel sounds
Neuro/Psych: AO x 3
Other: Cath Site (R radial no hematoma, there is a palpable R radial pulse. )
Data Reviewed
-
Date of Service: December 27, 2024
Echo: Report Reviewed by me (Echo 12/26/24 Normal biventricular size and systolic function without regional wall motion abnormality. Left ventricular ejection fraction is 60-65% by volumetric assessment. Trace aortic regurgitation.)
Labs: Labs Reviewed by me
--- NOTE | 2024-12-27 09:28 | W.DS.TRANS ---
DC Summary - Procedure Analyst
-
Discharge Instructions:
Discharge Diagnosis/Procedures Angioplasty with stent to LAD x 2
Diet Low Cholesterol,Low Fat,2 Gram Sodium
Activity No strenuous activity
Driving Restrictions As prior to admission
Other Services Cardiac Rehab
Instructions:
Stand-Alone Forms: DC Instructions- Cath/EP Lab
Changes to Home Medications: Yes
Discharge Medications:
DC Medications w/original date entered in [facility]
aspirin 81 mg tablet,delayed release 81 mg PO QPM 12/25/24
finasteride 5 mg tablet 5 mg PO HS 12/25/24
losartan 25 mg tablet 25 mg PO HS 12/25/24
omeprazole 40 mg capsule,delayed release 40 mg PO DAILYPRN PRN GERD 12/25/24
ticagrelor 90 mg tablet (Brilinta) 90 mg PO BID #60 tabs 12/25/24
carvedilol 6.25 mg tablet 6.25 mg PO BID #60 tabs 12/26/24
evolocumab 140 mg/mL subcutaneous pen injector (Repatha [employer]Click) 140 mg SC Q2W #2 mL 12/26/24
nitroglycerin 0.4 mg sublingual tablet See Rx Instructions .Route .COMPLEX PRN chest pain #25 tabs 12/27/24
Home Medication Changes
New:
ticagrelor 90 mg tablet (Brilinta) 90 mg PO BID #60 tabs 12/25/24
carvedilol 6.25 mg tablet 6.25 mg PO BID #60 tabs 12/26/24
evolocumab 140 mg/mL subcutaneous pen injector (Repatha [employer]Click) 140 mg SC Q2W #2 mL 12/26/24
nitroglycerin 0.4 mg sublingual tablet See Rx Instructions .Route .COMPLEX PRN chest pain #25 tabs 12/27/24
Pending Results: No
[2024-12-27 11:14] VITALS: BP 118/76
--- NOTE | 2024-12-27 11:34 | PTCARENOTE ---
d/c instructions read to pt and pt verbalized understanding. iv and tele removed. pt left via wheelchair w/ staff member. pt took belongings from room and d/c instructions.
== END 2024-12-27 11:48 | disposition home or self-care (01) | DRG 322 ==
LOC: IVU 11:02
PROVIDERS: Internal Medicine Cardiovascular Disease; Nurse Practitioner; Nurse Practitioner Adult Health; ADMITTING PHYSICIAN Internal Medicine Cardiovascular Disease; EMERGENCY PHYSICIAN Emergency Medicine; FAMILY PHYSICIAN Family Medicine
PROC: B241ZZ3 Ultrasonography of Multiple Coronary Arteries, Intravascular (ICD-10-PCS; 2024-12-25)
PROC: 027135Z Dilation of Coronary Artery, Two Arteries with Two Drug-eluting Intraluminal Devices, Percutaneous Approach (ICD-10-PCS; 2024-12-25)
PROC: 4A023N7 Measurement of Cardiac Sampling and Pressure, Left Heart, Percutaneous Approach (ICD-10-PCS; 2024-12-25)
PROC: B2111ZZ Fluoroscopy of Multiple Coronary Arteries using Low Osmolar Contrast (ICD-10-PCS; 2024-12-25)
DX: I21.4 Non-ST elevation (NSTEMI) myocardial infarction (principal); I25.10 Atherosclerotic heart disease of native coronary artery without angina pectoris; E78.01 Familial hypercholesterolemia; E78.2 Mixed hyperlipidemia; I10 Essential (primary) hypertension; N40.0 Benign prostatic hyperplasia without lower urinary tract symptoms; K21.9 Gastro-esophageal reflux disease without esophagitis; Z79.82 Long term (current) use of aspirin; Z79.899 Other long term (current) drug therapy; Z85.51 Personal history of malignant neoplasm of bladder
CPT/HCPCS: 71045; 80048; 80061; 83036; 84484; 85025; 85347; 92978; 93005; 93306; 96374; 96375; 99152; 99153; 99291; C1725; C1753; C1769; C1874; C1887; C1894; C9600; Q9967

== ENCOUNTER → 2025-01-30 16:02 | Outpatient (REF) | payer MEDICARE, SELFPAY | LOC: RCS 16:02 | PROVIDERS: ATTENDING PHYSICIAN Nurse Practitioner Gerontology; FAMILY PHYSICIAN Family Medicine | DX: R06.02 Shortness of breath (principal); I25.10 Atherosclerotic heart disease of native coronary artery without angina pectoris; Z95.5 Presence of coronary angioplasty implant and graft | CPT/HCPCS: 93308; 93321; 93325 ==